=== PATIENT | female | born 1990 | race Caucasian/White ===

== ENCOUNTER → 2016-08-05 | Outpatient (CLI) | payer OTHER ==
--- NOTE | 2016-08-05 14:49 | REP ---
Bilateral lower extremity pain while running. FINDINGS: No acute fracture or destructive osseous lesion. Signed by Lei Sawyer DO 08/05/2016 05:01 P
[2016-08-05 17:16] LABS: BASO % 0.5 % (0.0-1.0); EOS % 0.4 % (0.0-3.0); FOLATE 19.3 NG/ML; LARGE UNSTAINED CELL # 0.1 K/mm3 (0.0-0.4); LARGE UNSTAINED CELL % 1.2 % (0.0-4.0); LYMPH # 1.3 K/mm3 (1.5-6.5); LYMPH % 23.1 % (24.0-44.0); MEAN CORPUSCULAR HEMOGLOBIN 29.7 pg (27.0-33.0); MEAN CORPUSCULAR HGB CONC 33.9 g/dl (32.0-36.5); MEAN CORPUSCULAR VOLUME 87.7 fl (80.0-96.0); MONO # 0.3 K/mm3 (0.0-0.8); MONO % 4.9 % (0.0-5.0); NEUTROPHILS % 69.9 % (36.0-66.0); PLATELET COUNT, AUTOMATED 226 k/mm3 (150-450); RED CELL DISTRIBUTION WIDTH 12.6 % (11.5-14.5); VITAMIN B12 LEVEL 940 PG/ML; WHITE BLOOD COUNT 5.8 K/mm3 (4.0-10.0)
[2016-08-05 17:21] LABS: ALBUMIN/GLOBULIN RATIO 1.11 (1.00-1.93); ALKALINE PHOSPHATASE 62 U/L (45-117); ALT/SGPT 43 U/L (12-78); ANION GAP 6 MEQ/L (8-16); AST/SGOT 37 U/L (15-37); BILIRUBIN,TOTAL 0.5 MG/DL (0.2-1.0); BLOOD UREA NITROGEN 44 MG/DL (7-18); CARBON DIOXIDE LEVEL 30 MEQ/L (21-32); CHLORIDE LEVEL 105 MEQ/L (98-107); CREATININE FOR GFR 1.12 MG/DL (0.55-1.02); GLOMERULAR FILTRATION RATE > 60.0 (>60); GLUCOSE, FASTING 85 MG/DL (70-105); POTASSIUM SERUM 4.2 MEQ/L (3.5-5.1); SODIUM LEVEL 141 MEQ/L (136-145); TOTAL PROTEIN 7.6 GM/DL (6.4-8.2)
== END ==
LOC: M SMT 12:08
PROVIDERS: ATTEND Family Medicine
DX: M79.605 Pain in left leg (principal); M79.604 Pain in right leg; R53.83 Other fatigue

== ENCOUNTER → 2016-10-18 | Outpatient (CLI) | payer OTHER ==
[~2016-10-18] VITALS: Ht 160 cm; Wt 70.3 kg
[~2016-10-18] MED LIST: GLYCOPYRROLATE INJ 0.2 MG/ML 2 ML VIAL As Ordered ONE; LR 1,000 ML IV SCH; PROPOFOL 200 MG/20 ML VIAL As Ordered ONE
--- NOTE | 2016-10-18 13:42 | ROOR ---
Patient Name: Zee Grant Procedure Date: 10/18/2016 12:52 PM Date of : 1990 Age: 26 Room: [facility] Gender: Female Note Status: Finalized Procedure: Colonoscopy Indications: Family history of familial adenomatous polyposis in a first-degree relative, Last colonoscopy: 2009 Providers: Conrad Ballard MD Referring MD: Natali HENDERSON DO Requesting Provider: Medicines: Monitored Anesthesia Care Complications: No immediate complications. Procedure: Pre-Anesthesia Assessment: - Prior to the procedure, a History and Physical was performed, and patient medications and allergies were reviewed. The patient is competent. The risks and benefits of the procedure and the sedation options and risks were discussed with the patient. All questions were answered and informed consent was obtained. Patient identification and proposed procedure were verified by the physician, the nurse and the camp dishwasher in the procedure room. Mental Status Examination: alert and oriented. Airway Examination: normal oropharyngeal airway and neck mobility. CV Examination: regular rate and rhythm. Prophylactic Antibiotics: The patient does not require prophylactic antibiotics. Prior Anticoagulants: The patient has taken no previous anticoagulant or antiplatelet agents. ASA Grade Assessment: I - A normal, healthy patient. After reviewing the risks and benefits, the patient was deemed in satisfactory condition to undergo the procedure. The anesthesia plan was to use monitored anesthesia care (MAC). Immediately prior to administration of medications, the patient was re-assessed for adequacy to receive sedatives. The heart rate, respiratory rate, oxygen saturations, blood pressure, adequacy of pulmonary ventilation, and response to care were monitored throughout the procedure. The physical status of the patient was re-assessed after the procedure. The Colonoscope [id number] #[id number] was introduced through the anus and advanced to the cecum, identified by appendiceal orifice and ileocecal valve. The colonoscopy was performed without difficulty. The patient tolerated the procedure well. The quality of the bowel preparation was excellent. Findings: The perianal and digital rectal examinations were normal. The colon (entire examined portion) appeared normal. Impression: - The entire examined colon is normal. - No specimens collected. Recommendation: - Discharge patient to home. - Resume regular diet. Conrad Ballard MD 10/18/2016 1:41:48 PM Number of Addenda: 0 Note Initiated On: 10/18/2016 12:52 PM Estimated Blood Loss: Estimated blood loss: none.
[2016-10-18 14:14] VITALS: BP 129/67
== END | disposition home or self-care (01) ==
LOC: M OPP 11:43
PROVIDERS: ATTEND Surgery
DX: Z12.11 Encounter for screening for malignant neoplasm of colon (principal); D12.6 Benign neoplasm of colon, unspecified; Z83.71 Family history of colonic polyps; Z87.442 Personal history of urinary calculi; Z79.899 Other long term (current) drug therapy

== ENCOUNTER → 2016-11-15 | Outpatient (REF) | payer OTHER | LOC: M LAB REF 17:04 | PROVIDERS: ATTEND Physician Assistant Medical | DX: R30.0 Dysuria (principal) ==

== ENCOUNTER → 2016-12-23 | Outpatient (CLI) | payer OTHER ==
--- NOTE | 2016-12-23 13:06 | REP ---
LUMBOSACRAL SPINE: AP and lateral views of the lumbosacral spine are performed. There is no compression fracture or malalignment with normal lumbar lordosis. There is no evidence of spondylolysis or spondylolisthesis. Disc spaces are normal in thickness. Posterior elements are intact. Incidental note is made of multiple subcentimeter calcifications scattered throughout the region of the left kidney, with approximately three subcentimeter calcifications overlying the right renal shadow. I suspect these represent bilateral renal calculi. IMPRESSION: Negative lumbosacral spine. Suspect multiple bilateral subcentimeter renal calculi. Signed by Candido Jones MD 12/23/2016 02:24 P
== END ==
LOC: M SMT 11:44
PROVIDERS: ATTEND Physician Assistant Medical
DX: M54.5 Low back pain (principal)

== ENCOUNTER → 2017-02-17 | Outpatient (CLI) | payer OTHER ==
[2017-02-17 13:33] LABS: CALCIUM LEVEL 9.2 MG/DL (8.5-10.1)
== END ==
LOC: M SMT 11:01
PROVIDERS: ATTEND Physician Assistant Medical
DX: N20.0 Calculus of kidney (principal)

== ENCOUNTER → 2017-03-03 | Outpatient (CLI) | payer OTHER ==
--- NOTE | 2017-03-03 15:10 | REP ---
Radionuclide parathyroid scintigraphy with SPECT imaging: History: Kidney calculus. Parathyroid sestamibi scan. Primary hyperparathyroidism. Technique: 26.3 mCi technetium 99m sestamibi is injected and 15-minute delay and 3 hour delayed planar images of the head, neck and mediastinal region is acquired. In addition, a SPECT acquisition is performed. Scintigraphic findings: The 15-minute delayed images demonstrate expected salivary and thyroid gland uptake bilaterally. No abnormal mediastinal or head and neck uptake is seen. Delayed images demonstrate normal washout from the thyroid and salivary glands. There is no persistent uptake in the head, neck or mediastinal soft tissues to suggest a parathyroid adenoma. SPECT imaging is negative. Impression: Negative sestamibi parathyroid nuclear scintigraphy. Signed by Jose Barrera MD 03/03/2017 04:32 P
== END ==
LOC: M RAD 09:58
PROVIDERS: ATTEND Physician Assistant Medical
DX: N20.0 Calculus of kidney (principal); E21.0 Primary hyperparathyroidism
CPT/HCPCS: 78070; 78803; A9500

== ENCOUNTER → 2017-03-14 | Outpatient (CLI) | payer OTHER | LOC: M SMT 11:46 | PROVIDERS: ATTEND Physician Assistant Medical | DX: N20.0 Calculus of kidney (principal) ==

== ENCOUNTER → 2017-03-30 | Outpatient (REF) | payer OTHER | LOC: M LAB REF 13:10 | DX: R19.7 Diarrhea, unspecified (principal) ==

== ENCOUNTER → 2017-03-30 | Outpatient (CLI) | payer OTHER ==
[2017-03-30 13:35] LABS: MEAN CORPUSCULAR HEMOGLOBIN 28.8 pg (27.0-33.0); MEAN CORPUSCULAR HGB CONC 33.2 g/dl (32.0-36.5); MEAN CORPUSCULAR VOLUME 86.7 fl (80.0-96.0); PLATELET COUNT, AUTOMATED 210 10^3/uL (150-450); RED CELL DISTRIBUTION WIDTH 12.2 % (11.5-14.5); WHITE BLOOD COUNT 5.6 10^3/uL (4.0-10.0)
[2017-03-30 14:07] LABS: ALBUMIN 3.7 GM/DL (3.2-5.2); ALBUMIN/GLOBULIN RATIO 1.12 (1.00-1.93); ALKALINE PHOSPHATASE 50 U/L (45-117); ALT/SGPT 39 U/L (12-78); ANION GAP 5 MEQ/L (8-16); AST/SGOT 33 U/L (7-37); BILIRUBIN,TOTAL 0.3 MG/DL (0.2-1.0); BLOOD UREA NITROGEN 44 MG/DL (7-18); CALCIUM LEVEL 8.3 MG/DL (8.5-10.1); CARBON DIOXIDE LEVEL 30 MEQ/L (21-32); CHLORIDE LEVEL 107 MEQ/L (98-107); CREATININE FOR GFR 0.93 MG/DL (0.55-1.02); GLOMERULAR FILTRATION RATE > 60.0 (>60); GLUCOSE, FASTING 100 MG/DL (70-105); POTASSIUM SERUM 4.4 MEQ/L (3.5-5.1); SODIUM LEVEL 142 MEQ/L (136-145)
== END ==
LOC: M SMT 09:52
DX: N92.6 Irregular menstruation, unspecified (principal)

== ENCOUNTER → 2017-04-10 | Outpatient (CLI) | payer OTHER | LOC: M RAD 10:58 | DX: N92.6 Irregular menstruation, unspecified (principal) | CPT/HCPCS: 76856 ==

== ENCOUNTER → 2017-05-01 | Outpatient (REF) | payer OTHER ==
[2017-05-01 19:29] LABS: INFLUENZA A AMPLIFICATION NEGATIVE (NEGATIVE); INFLUENZA B AMPLIFICATION NEGATIVE (NEGATIVE)
== END ==
LOC: M LAB REF 17:11
DX: J02.9 Acute pharyngitis, unspecified (principal)

== ENCOUNTER → 2017-11-06 | Outpatient (REF) | payer OTHER | LOC: M LAB REF 17:04 | DX: R31.9 Hematuria, unspecified (principal) | CPT/HCPCS: 87086 ==

== ENCOUNTER → 2017-11-08 | Outpatient (REF) | payer OTHER ==
[2017-11-08 13:41] LABS: BASO % 0.4 % (0.0-1.0); EOS % 0.4 % (0.0-3.0); HEMATOCRIT 41.5 % (36.0-47.0); HEMOGLOBIN 13.7 g/dl (12.0-15.5); IMMATURE GRANULOCYTE % 0.4 % (0-3.0); LYMPH # 1.4 10^3/uL (1.5-6.5); LYMPH % 15.2 % (24.0-44.0); MEAN CORPUSCULAR HEMOGLOBIN 29.2 pg (27.0-33.0); MEAN CORPUSCULAR VOLUME 88.5 fl (80.0-96.0); MONO # 0.4 10^3/uL (0.0-0.8); MONO % 3.8 % (0.0-5.0); NEUTROPHILS # 7.3 10^3/uL (1.8-7.7); NEUTROPHILS % 79.8 % (36.0-66.0); PLATELET COUNT, AUTOMATED 222 10^3/uL (150-450); RED BLOOD COUNT 4.69 10^6/uL (4.00-5.40); RED CELL DISTRIBUTION WIDTH 13.9 % (11.5-14.5); WHITE BLOOD COUNT 9.1 10^3/uL (4.0-10.0)
[2017-11-08 14:03] LABS: ALBUMIN/GLOBULIN RATIO 1.08 (1.00-1.93); ALKALINE PHOSPHATASE 47 U/L (45-117); ALT/SGPT 51 U/L (12-78); ANION GAP 8 MEQ/L (8-16); AST/SGOT 42 U/L (7-37); BILIRUBIN,TOTAL 0.4 MG/DL (0.2-1.0); BLOOD UREA NITROGEN 44 MG/DL (7-18); CALCIUM LEVEL 9.1 MG/DL (8.5-10.1); CARBON DIOXIDE LEVEL 26 MEQ/L (21-32); CHLORIDE LEVEL 105 MEQ/L (98-107); CPK CREATINE PHOSPHOKINASE 387 U/L (26-192); CREATININE FOR GFR 1.26 MG/DL (0.55-1.30); GLOMERULAR FILTRATION RATE 54.6 (>60); GLUCOSE, FASTING 83 MG/DL (70-100); MAGNESIUM LEVEL 2.3 MG/DL (1.8-2.4); POTASSIUM SERUM 4.8 MEQ/L (3.5-5.1); SODIUM LEVEL 139 MEQ/L (136-145); TOTAL PROTEIN 7.7 GM/DL (6.4-8.2)
== END ==
LOC: M LABDRAW1 13:22
DX: R31.9 Hematuria, unspecified (principal)

== ENCOUNTER → 2017-11-14 | Outpatient (REF) | payer OTHER ==
[2017-11-14 14:31] LABS: APPEARANCE, URINE CLEAR (CLEAR); BACTERIA, URINE AUTO NEGATIVE (NEGATIVE); BILIRUBIN, URINE AUTO NEGATIVE (NEGATIVE); BLOOD, URINE BLOOD 3+ (NEGATIVE); COLOR, URINE STRAW (YELLOW); GLUCOSE, URINE (UA) AUTO NEGATIVE (NEGATIVE); KETONE, URINE AUTO NEGATIVE (NEGATIVE); LEUKOCYTE ESTERASE, URINE AUTO NEGATIVE (NEGATIVE); NITRITE, URINE AUTO NEGATIVE (NEGATIVE); PROTEIN, URINE AUTO NEGATIVE (NEGATIVE); RBC, URINE AUTO 129 /HPF (0-3); SPECIFIC GRAVITY URINE AUTO 1.012 (1.002-1.035); SQUAMOUS EPITHELIAL CELL UR AU 0 /HPF (0-6); UROBILINOGEN, URINE AUTO 0.2 mg/dL (0.0-2.0); WBC, URINE AUTO 1 /HPF (0-3)
== END ==
LOC: M SMT 13:01
DX: R31.9 Hematuria, unspecified (principal)

== ENCOUNTER → 2017-12-22 | Outpatient (CLI) | payer OTHER ==
[2017-12-22 17:11] LABS: BASO # 0.1 10^3/uL (0.0-0.2); BASO % 0.6 % (0.0-1.0); EOS % 0.2 % (0.0-3.0); HEMATOCRIT 37.8 % (36.0-47.0); HEMOGLOBIN 13.1 g/dl (12.0-15.5); IMMATURE GRANULOCYTE % 0.8 % (0-3.0); LYMPH # 1.7 10^3/uL (1.5-6.5); MEAN CORPUSCULAR HEMOGLOBIN 29.6 pg (27.0-33.0); MEAN CORPUSCULAR HGB CONC 34.7 g/dl (32.0-36.5); MEAN CORPUSCULAR VOLUME 85.5 fl (80.0-96.0); MONO # 0.4 10^3/uL (0.0-0.8); MONO % 5.2 % (0.0-5.0); NEUTROPHILS # 6.2 10^3/uL (1.8-7.7); NEUTROPHILS % 73.2 % (36.0-66.0); PLATELET COUNT, AUTOMATED 200 10^3/uL (150-450); RED BLOOD COUNT 4.42 10^6/uL (4.00-5.40); RED CELL DISTRIBUTION WIDTH 12.7 % (11.5-14.5); WHITE BLOOD COUNT 8.5 10^3/uL (4.0-10.0)
[2017-12-22 20:25] LABS: CHLAMYDIA DNA AMPLIFICATION NEGATIVE (NEGATIVE); GC DNA AMPLIFICATION NEGATIVE (NEGATIVE)
[2017-12-25 12:52] LABS: HEPATITIS C VIRUS ABY INDEX 0.1 INDEX (<0.8)
[2017-12-25 12:52] LABS: HBsAg Prenatal NEGATIVE (NEGATIVE); HIV 1&2 SCREEN CENTAUR NEGATIVE (NEGATIVE); RUBELLA IgG QUALITATIVE IMMUNE (IMMUNE)
== END ==
LOC: M SMT 14:30
DX: Z34.81 Encounter for supervision of other normal pregnancy, first trimester (principal); Z36.89 Encounter for other specified antenatal screening; Z3A.09 9 weeks gestation of pregnancy
CPT/HCPCS: 86762

== ENCOUNTER → 2018-01-23 | Outpatient (CLI) | payer OTHER ==
[2018-01-23 18:02] LABS: BASO % 0.2 % (0.0-1.0); EOS % 0.1 % (0.0-3.0); HEMATOCRIT 38.1 % (36.0-47.0); HEMOGLOBIN 12.9 g/dl (12.0-15.5); IMMATURE GRANULOCYTE % 0.2 % (0-3.0); LYMPH % 12.6 % (24.0-44.0); MEAN CORPUSCULAR HEMOGLOBIN 29.4 pg (27.0-33.0); MEAN CORPUSCULAR HGB CONC 33.9 g/dl (32.0-36.5); MEAN CORPUSCULAR VOLUME 86.8 fl (80.0-96.0); MONO # 0.4 10^3/uL (0.0-0.8); MONO % 4.7 % (0.0-5.0); NEUTROPHILS # 6.6 10^3/uL (1.8-7.7); NEUTROPHILS % 82.2 % (36.0-66.0); PLATELET COUNT, AUTOMATED 183 10^3/uL (150-450); RED BLOOD COUNT 4.39 10^6/uL (4.00-5.40); RED CELL DISTRIBUTION WIDTH 12.9 % (11.5-14.5); WHITE BLOOD COUNT 8.1 10^3/uL (4.0-10.0)
[2018-01-23 22:15] LABS: ANION GAP 8 MEQ/L (8-16); BLOOD UREA NITROGEN 35 MG/DL (7-18); CALCIUM LEVEL 8.4 MG/DL (8.5-10.1); CARBON DIOXIDE LEVEL 26 MEQ/L (21-32); CHLORIDE LEVEL 102 MEQ/L (98-107); CREATININE FOR GFR 0.85 MG/DL (0.55-1.30); GLOMERULAR FILTRATION RATE > 60.0 (>60); GLUCOSE, FASTING 71 MG/DL (70-100); POTASSIUM SERUM 3.9 MEQ/L (3.5-5.1); SODIUM LEVEL 136 MEQ/L (136-145)
== END ==
LOC: M SMT 15:47
DX: R31.9 Hematuria, unspecified (principal)
CPT/HCPCS: 80048

== ENCOUNTER → 2018-01-30 | Outpatient (CLI) | payer OTHER | LOC: M SMT 15:11 | DX: Z36.89 Encounter for other specified antenatal screening (principal) | CPT/HCPCS: 36415 ==

== ENCOUNTER → 2018-03-02 | Outpatient (CLI) | payer OTHER | LOC: M RAD 15:23 | DX: Z34.82 Encounter for supervision of other normal pregnancy, second trimester (principal); Z3A.18 18 weeks gestation of pregnancy | CPT/HCPCS: 76811 ==

== ENCOUNTER → 2018-03-20 | Outpatient (CLI) | payer OTHER ==
--- NOTE | 2018-03-21 07:16 | REP ---
Clinical: Anatomical evaluation. Comparison: 03/02/2018 . Findings: Examination demonstrates a single live intrauterine in breech presentation. motion is identified by technologist. Placenta is noted anterior and grade grade 1 without evidence for placenta previa or abruption. Amniotic fluid volume is normal. Cervix measures 3.7 cm in length and appears closed. No evidence for nuchal cord. Gestational age by LMP 21 weeks 5 days with JACQUELIN 07/26/2018 . Gestational age by current measurements 21 weeks 1 day with JACQUELIN 07/30/2018 . FHR equals 141 beats per minute. Estimated weight 402 grams ( 28th percentile). Anatomical assessment demonstrates normal structures including cranium, choroid plexus, cavum, cerebellum/posterior fossa, facial features, lungs, four-chamber heart/ventricular outflow tracts, diaphragm, stomach, cord insertion/three-vessel cord, kidneys/bladder, spine, and extremities. Impression: Single live intrauterine in breech presentation demonstrating appropriate interval growth. Anatomical assessment is complete and normal. No gross abnormalities are identified. Electronically Signed by Steven Fabian MD 03/21/2018 07:08 A
== END ==
LOC: M RAD 17:10
PROVIDERS: ATTEND Advanced Practice Midwife
DX: O99.512 Diseases of the respiratory system complicating pregnancy, second trimester (principal); O32.1XX0 Maternal care for breech presentation, not applicable or unspecified; Z3A.21 21 weeks gestation of pregnancy

== ENCOUNTER → 2018-05-03 | Outpatient (CLI) | payer OTHER ==
[2018-05-03 17:31] LABS: HEMATOCRIT 38.3 % (36.0-47.0); HEMOGLOBIN 13.1 g/dl (12.0-15.5); MEAN CORPUSCULAR HEMOGLOBIN 30.3 pg (27.0-33.0); MEAN CORPUSCULAR HGB CONC 34.2 g/dl (32.0-36.5); MEAN CORPUSCULAR VOLUME 88.7 fl (80.0-96.0); PLATELET COUNT, AUTOMATED 186 10^3/uL (150-450); RED BLOOD COUNT 4.32 10^6/uL (4.00-5.40); WHITE BLOOD COUNT 9.3 10^3/uL (4.0-10.0)
== END ==
LOC: M SMT 12:37
PROVIDERS: ATTEND Advanced Practice Midwife
DX: O99.89 Other specified diseases and conditions complicating pregnancy, childbirth and the puerperium (principal)

== ENCOUNTER → 2018-05-25 | Outpatient (CLI) | payer OTHER ==
--- NOTE | 2018-05-25 18:17 | REP ---
Obstetric ultrasound for biophysical profile: There is a single intrauterine gestation in a transverse lie with the head to the maternal left. Subjectively the amniotic fluid volume is normal. The amniotic fluid index is 17.3 (8.8 - 23.8). heart rate is 120 beats per minute. Cervix is 4.2 cm length. Gestational age by the first ultrasound is 30 weeks 5 days/JACQUELIN 07/29/2018. biophysical profile: Breathing - 2.0 One - 2.0 Tone - 2.0 A F V - 2.0 Total - 8/8. Umbilical cord Doppler S/D ratio is 3.8( 2.5 - 3.5). Electronically Signed by Candido Morrow MD 05/25/2018 06:08 P
== END ==
LOC: M RAD 16:23
PROVIDERS: ATTEND Advanced Practice Midwife
DX: O26.843 Uterine size-date discrepancy, third trimester (principal)

== ENCOUNTER → 2018-06-01 | Outpatient (CLI) | payer OTHER ==
--- NOTE | 2018-06-01 15:01 | REP ---
Obstetric sonography: History: at 31 weeks. Follow up growth study. Biophysical profile. Size date discrepancy. Sonographic findings: Scanning through the gravid uterus demonstrates a viable single intrauterine gestation in a cephalic lie. motion is observed and heart rate is recorded at 129 beats per minute. An anterior grade 2 placenta is seen without evidence of previa or abruption. Amniotic fluid is subjectively normal. Closed cervical length viewed transabdominally is 4.6 cm. No extrauterine abnormalities observed. There has been slightly less than expected interval growth. Umbilical cord is seen draping over the neck. Small bilateral hydroceles are noted in the scrotum. Biometry chart: BPD 7.8 cm = 31 weeks 2 days HC 29.6 cm = 32 weeks 5 days AC 24.9 cm = 29 weeks 1 day FL 5.7 cm = 29 weeks 6 days HL 5.2 cm = 30 weeks 2 days HC/AC ratio 1.19 (0.95-1.14. Cephalic index 0.72. Estimated weight 1470 grams, 3 pounds 3 ounces, less than 3rd percentile for 32 weeks 1 day. KHLOE normal 16.3 cm. Biophysical profile score 8 out of a possible 8. S/D ratio in the umbilical cord artery by Doppler normal 3.27. Impression: Viable single intrauterine gestation at 30 weeks 5 days by today's composite sonographic criteria. Expected gestational age estimate based on prior sonography 31 weeks 5 days. JACQUELIN by prior sonography July 29, 2018. Estimated weight less than 3rd percentile for 32 weeks 1 day. Electronically Signed by Jose Barrera MD 06/01/2018 03:53 P
== END ==
LOC: M RAD 12:49
PROVIDERS: ATTEND Advanced Practice Midwife
DX: O26.843 Uterine size-date discrepancy, third trimester (principal); Z3A.30 30 weeks gestation of pregnancy

== ENCOUNTER → 2018-06-07 | Outpatient (CLI) | payer OTHER ==
--- NOTE | 2018-06-08 04:58 | REP ---
Clinical: well-being. Comparison: 06/01/2018 . Findings: Examination demonstrates a single live intrauterine in breech presentation. motion is identified by technologist. Placenta is noted anterior and grade grade II without evidence for placenta previa or abruption. Amniotic fluid volume is normal. Cervix measures 3.6 cm in length and appears closed. No evidence for nuchal cord. Gestational age by LMP 33 weeks 0 days with JACQUELIN 07/26/2018 . Gestational age by first US 32 weeks 4 days with JACQUELIN 07/29/2018 . FHR equals 141 beats per minute. Biophysical profile score: 8/ Amniotic fluid index: 12.9 cm (8.3 - 24.5) Umbilical cord SD ratio: 2.15 Impression: At single live intrauterine in breech presentation. Biophysical profile score: 8/8 Electronically Signed by Steven Fabian MD 06/08/2018 04:49 A
== END ==
LOC: M RAD 17:59
PROVIDERS: ATTEND Obstetrics & Gynecology
DX: O36.5930 Maternal care for other known or suspected poor fetal growth, third trimester, not applicable or unspecified (principal); O32.1XX0 Maternal care for breech presentation, not applicable or unspecified; Z3A.33 33 weeks gestation of pregnancy

== ENCOUNTER → 2018-06-15 | Outpatient (CLI) | payer OTHER ==
--- NOTE | 2018-06-15 09:20 | REP ---
Biophysical profile OB ultrasound: 06/15/2018. Comparison 06/07/2018, 06/01/2018. Clinical history: Third trimester, growth. There is a single intrauterine gestation in vertex position. There is an anterior grade 1 placenta without previa or abruption. Amniotic fluid volume is visually normal. The index is 12.9 with a normal range 8.1 - 24.8 and the largest fluid pocket 4.3 cm. Cervix is 3.6 cm long and closed. Mid cord umbilical artery Doppler shows an S/D ratio 2.4 with normal forward diastolic flow and Doppler resistive index of 0.58. biometry:BPD 8.4 cm 33 week 6 daysHC 31.1 cm 34 weeks 5 daysAC 28.9 cm 32 week 6 daysFL 6 cm 31 weeks 2 daysHL 5.8 cm 33 weeks 4 days CER 4.4 cm 34 weeks 3 days. This gives average ultrasound age 33 weeks 2 days and EDC 08/01/2018. By initial ultrasound, she is 33 weeks 5 days, EDC 07/29/2018. Estimated weight 2027 grams or 4 pounds 7 ounces is 21st percentile based on LMP (34 weeks 1 day. Measurement ratios are in the normal range. The femur length is 7th percentile. All others are in the range of 32 percentile to 60 percentile. anatomy visible on this study shows a heart rate 133 and regular. Cranial vault, choroid plexus, thalami, cavum septum pellucidum, cerebellum and cisterna magna, face and profile views, lungs, diaphragm, left-sided stomach bubble, cord insertion, three-vessel cord and kidneys unremarkable. The bladder was intact. There are small hydroceles again seen. No evidence of a nuchal cord. biophysical profile: Breathing 2. Tone 2. Movement 2. AFV 2. IMPRESSION: 1. Single intrauterine gestation in vertex position with closed 3.6 cm long cervix, anterior grade 1 placenta without previa abruption and KHLOE 12.9. Visually normal fluid. 2. Heart rate 133 and regular. Visualized anatomic structures unremarkable. However there are small hydroceles noted in the scrotum. 3. Size and dates show normal interval growth, 33 weeks 2 days by today's ultrasound, 33 weeks 5 days by initial ultrasound, 34 weeks 1 day by LMP. Estimated weight 21st percentile for LMP. On the previous exam, it was calculated at less than 3% on 03/20/2018. The estimated weight was 28th percentile. 4. BPP score 8/8. Electronically Signed by Cornelio Holland MD 06/15/2018 06:29 P
== END ==
LOC: M RAD 07:35
PROVIDERS: ATTEND Advanced Practice Midwife
DX: O36.5930 Maternal care for other known or suspected poor fetal growth, third trimester, not applicable or unspecified (principal); Z3A.33 33 weeks gestation of pregnancy

== ENCOUNTER → 2018-06-21 | Outpatient (CLI) | payer OTHER ==
--- NOTE | 2018-06-21 15:48 | REP ---
Limited obstetric sonography: History: Poor growth. Findings: Obstetric sonography demonstrates a single intrauterine gestation in a cephalic lie. Placenta is anterior grade 1 without evidence of previa. motion and cardiac motion is observed. heart rate is recorded at 150 beats per minute. Closed cervical length is 3.3 cm, measured transabdominally. SD ratio umbilical cord artery by Doppler is normal at 2.31. Biophysical profile score is eight out of a possible eight. KHLOE is normal 15.4 cm. Electronically Signed by Jose Barrera MD 06/21/2018 03:39 P
== END ==
LOC: M RAD 06:59
PROVIDERS: ATTEND Advanced Practice Midwife
DX: O36.5930 Maternal care for other known or suspected poor fetal growth, third trimester, not applicable or unspecified (principal)

== ENCOUNTER → 2018-06-28 | Outpatient (CLI) | payer OTHER ==
--- NOTE | 2018-06-28 10:13 | REP ---
OBSTETRIC SONOGRAPHY: HISTORY: Supervision of , followup for weekly biophysical profile and umbilical cord Doppler. growth study. Third trimester. FINDINGS: Scanning through the gravid uterus demonstrates a viable single gestation in a breech lie. motion is observed, and heart rate is recorded at 142 beats per minute. An anterior placenta is seen, grade 1 without evidence of previa or abruption. Amniotic fluid is subjectively normal. Closed cervical length measured transabdominally is 2.6 cm. No extrauterine abnormalities observed. There has been appropriate interval growth. Exam quality is inhibited some degree by advanced gestational age and crowding. No abnormalities observed. The following anatomic structures are identified today and felt to be unremarkable: cranium, choroid plexus, cavum, cerebellum and posterior fossa, diaphragm, left-sided stomach, three-vessel cord, kidneys and bladder, spine. BIOMETRY CHART: BPD 8.8 cm = 35 weeks 3 days Head circumference 32.5 cm = 36 weeks 6 days Abdominal circumference 31.1 cm = 35 weeks 1 day Femur length 6.5 cm = 33 weeks 3 days Humeral length 5.6 cm = 32 weeks 5 days HC/AC ratio normal 1.05 Cephalic index normal 0.75 Estimated weight 2536 grams, 5 pounds 9 ounces, 31st percentile for 36 weeks 0 days. KHLOE normal 11.1 cm. Biophysical profile score 8 out of a possible 8. S/D ratio normal 2.72. IMPRESSION: Viable single intrauterine gestation at 34 weeks 5 days by today's composite sonographic criteria. Expected gestational age estimate based on prior sonography is 35 weeks 4 days. JACQUELIN by prior sonography July 29, 2018. Electronically Signed by Jose Barrera MD 06/28/2018 12:07 P
== END ==
LOC: M RAD 07:47
PROVIDERS: ATTEND Obstetrics & Gynecology
DX: O36.5930 Maternal care for other known or suspected poor fetal growth, third trimester, not applicable or unspecified (principal); Z3A.34 34 weeks gestation of pregnancy

== ENCOUNTER → 2018-06-29 | Outpatient (CLI) | payer OTHER | LOC: M SMT 10:03 | PROVIDERS: ATTEND Advanced Practice Midwife | DX: Z36.85 Encounter for antenatal screening for Streptococcus B (principal); O36.5930 Maternal care for other known or suspected poor fetal growth, third trimester, not applicable or unspecified; Z3A.00 Weeks of gestation of pregnancy not specified ==

== ENCOUNTER → 2018-07-16 | Outpatient (CLI) | payer OTHER ==
--- NOTE | 2018-07-16 09:39 | REP ---
Third trimester obstetric ultrasound for size, date discrepancy: There is a single intrauterine gestation in a vertex presentation. There is movement. cardiac activity is identified. The heart rate is of 142 beats per minute. The placenta is anterior. There is no previa or abruptio. The placenta is grade zero maturity. The amniotic fluid volume subjectively is normal. The amniotic fluid index is 13.4 (deepest pocket). The cervix measures 2.8 cm length. Gestational age by today's ultrasound is 36 weeks 5 days/JACQUELIN 08/08/2018. Gestational age by the first ultrasound is 38 weeks 1 day/JACQUELIN 07/29/2018. Gestational age by LMP is 38 weeks 4 days/JACQUELIN 07/26/2018. weight is 3027 grams/6 pounds, 10 ounces. This is the 32nd percentile for 38 weeks 4 days. Umbilical artery Doppler assessment: S/D ratio 2.09 (2.30-3.30) Resistive Index 0.52 (0.59-0.75 Diastolic Velocity 24.3 (>10 cm/sec) On prior studies, the facial profile, four-chamber view of the heart, cardiac right and left ventricular outflow tracts, and upper lower extremities were not optimally demonstrated. These studies are not optimally demonstrated as well today. Evaluation of the anatomy is technically difficult. The third trimester. Electronically Signed by Candido Morrow MD 07/16/2018 08:06 A
== END ==
LOC: M RAD 06:38
PROVIDERS: ATTEND Advanced Practice Midwife
DX: O26.843 Uterine size-date discrepancy, third trimester (principal)

== ENCOUNTER 2018-08-02 21:57 | Inpatient (IN) | payer OTHER ==
[~2018-08-02] VITALS: Ht 160 cm; Wt 80.6 kg
[2018-08-02 22:19] VITALS: BP 128/74
[2018-08-02 23:01] LABS: HEMATOCRIT 39.2 % (36.0-47.0); HEMOGLOBIN 13.5 g/dl (12.0-15.5); MEAN CORPUSCULAR HEMOGLOBIN 30.1 pg (27.0-33.0); MEAN CORPUSCULAR HGB CONC 34.4 g/dl (32.0-36.5); MEAN CORPUSCULAR VOLUME 87.3 fl (80.0-96.0); PLATELET COUNT, AUTOMATED 190 10^3/uL (150-450); RED BLOOD COUNT 4.49 10^6/uL (4.00-5.40); WHITE BLOOD COUNT 8.3 10^3/uL (4.0-10.0)
[2018-08-02] MEDS ORDERED: PENICILLIN G POTASSIUM IV 5 MU in D5W MINI-BAG PLUS 100 ML IV STA (23:25)
[2018-08-03] VITALS (10 sets, daily range): BP systolic 121–149; BP diastolic 56–85
[2018-08-03] MEDS: miSOPROStol 50 MCG 1/2 TAB (S0191) PO SCH ×4 (00:10→12:53)
[2018-08-03] MEDS ORDERED: PENICILLIN G POTASSIUM IV 2.5 MU in APPROPRIATE DILUENT 1 EA IV SCH (03:30)
--- NOTE | 2018-08-03 04:06 | HPE ---
DATE OF ADMISSION: 08/02/2018 REASON FOR ADMISSION: Induction of labor. HISTORY OF PRESENT ILLNESS: This patient is a 27-year-old 1, who presents at 21 weeks, zero days by estimated gestational age, by her last menstrual period, confirmed by first trimester ultrasound for induction of labor. Her course has been relatively uncomplicated. Earlier in her , there is concerns for intrauterine growth restriction. She was followed with serial growth ultrasounds, as well as biophysical profile with resolution of the intrauterine growth restriction. Her last growth ultrasound on 16 of July, had an EFW of 32%. Her care was initiated first trimester and appropriate throughout. PAST MEDICAL HISTORY: None. PAST SURGICAL HISTORY: PAST OBSTETRICAL HISTORY: She is 1, para 0. MEDICATIONS: Includes vitamins. ALLERGIES: She has no known drug allergies. SOCIAL HISTORY: She denies any alcohol, tobacco or drug use during the . PHYSICAL EXAMINATION: Her vital signs are stable. She is afebrile. She has category one heart tracing. General appearance: Well appearing, in no acute distress. Lungs are clear to auscultation bilaterally. Cardiovascular: Heart regular rate and rhythm. The abdomen is gravid, nontender. Cervical exam: She is 1 cm dilated, 25% effaced, -3 station. LABS: Her blood type is A+, antibody screen is negative. Rubella is immune. RPR nonreactive. Chlamydia, gonorrhea screens are negative. Hepatitis surface antigen negative. HIV is negative. Hepatitis C is nonreactive. She had Group B streptococcus (GBS) positive. ASSESSMENT: 1. This patient is a 27-year-old 1 at 41 weeks, zero days estimated gestational age by last menstrual period, confirmed by first trimester ultrasound, here for induction of labor for postdates. 2. Reassure status. 3. Group B streptococcus (GBS) positive, admitted to labor and delivery. Complete blood count (CBC), RPR, type and screen. 4. The patient has been thoroughly counseled in regards to induction of labor. I discussed medications, as well as procedures performed in labor and delivery. She has also been verbally considered for emergency surgery, blood products, anesthesia and desires to proceed with admission. 5. Will initiate her induction with 50 mcg of oral misoprostol.
--- NOTE | 2018-08-03 07:56 | IPNPDOC ---
Text Note Date of Service The patient was seen on 08/03/18. NOTE Remains comfortable Irregular mild UC FH 125, Cat I SVE FT/25/-2, posterior, soft Continue misoprostol. Consider Cooks this afternoon Dr Leung aware of pt status A-FIB/CHADSVASC A-FIB History Current/History of A-Fib/PAF?: No VS,Fishbone, I+O VS, Fishbone, I+O Laboratory Tests 08/02/18 22:40 Red Blood Count 4.49, Mean Corpuscular Volume 87.3, Mean Corpuscular Hemoglobin 30.1, Mean Corpuscular Hemoglobin Concent 34.4, Red Cell Distribution Width 12.7 Vital Signs Date Time Temp Pulse Resp B/P (MAP) Pulse Ox O2 Delivery O2 Flow Rate FiO2 08/03/18 07:26 97.8 45 125/56 (79) Lara Arechiga CNM August 03, 2018 07:56
--- NOTE | 2018-08-03 17:14 | IPNPDOC ---
Text Note Date of Service The patient was seen on 08/03/18. NOTE Has had 4 doses misoprostol 50mcg Cat I tracing, irregular UC SVE difficult, maternal guarding, 1cm/30%/-3 Cooks catheter placed, inflated with 60cc/40cc sterile saline Pt tolerated well Will initiate pitocin following dinner. A-FIB/CHADSVASC A-FIB History Current/History of A-Fib/PAF?: No VS,Fishbone, I+O VS, Fishbone, I+O Laboratory Tests 08/02/18 22:40 Red Blood Count 4.49, Mean Corpuscular Volume 87.3, Mean Corpuscular Hemoglobin 30.1, Mean Corpuscular Hemoglobin Concent 34.4, Red Cell Distribution Width 12.7 Vital Signs Date Time Temp Pulse Resp B/P (MAP) Pulse Ox O2 Delivery O2 Flow Rate FiO2 08/03/18 14:57 98.1 16 08/03/18 07:26 45 125/56 (79) Lara Arechiga CNM August 03, 2018 17:14
[2018-08-03] MEDS ORDERED: OXYTOCIN DRIP 30 UNITS in APPROPRIATE DILUENT 1 EA IV SCH (17:15)
[2018-08-03] MEDS: LR 1,000 ML IV SCH (19:35)
[2018-08-03] MEDS ORDERED: PENICILLIN G POTASSIUM 5 MU VIAL As Ordered ONE (19:45)
[2018-08-03] MEDS ORDERED: PENICILLIN G POTASSIUM IV 5 MU in D5W MINI-BAG PLUS 100 ML IV STA (19:46)
[2018-08-03] MEDS ORDERED: BUTORPHANOL 2 MG/ML INJ (J0595) IV ONE (20:45)
[2018-08-03] MEDS ORDERED: PROMETHAZINE INJ 25 MG/ML VIAL (J2550) IV ONE (20:45)
[2018-08-04] VITALS (52 sets, daily range): BP systolic 91–143; BP diastolic 50–103
[2018-08-04] MEDS: PENICILLIN G POTASSIUM IV 2.5 MU in APPROPRIATE DILUENT 1 EA IV SCH ×5 (00:05→17:17)
[2018-08-04] MEDS ORDERED: FENTANYL 2MCG/ML ROPIVACAINE 0.2% IN 0.9% NACL 100ML IVBAG As Ordered ONE (00:18)
[2018-08-04] MEDS ORDERED: diphenhydrAMINE INJ 50MG/ML VIAL (J1200) IV PRN ×2 (01:00→19:10)
[2018-08-04] MEDS ORDERED: ONDANSETRON 4MG/2ML VIAL (J2405) IV PRN ×4 (01:00→20:00)
[2018-08-04] MEDS ORDERED: NALOXONE INJ 0.4 MG/1 ML VIAL (J2310) IV PRN ×3 (01:00→19:10)
[2018-08-04] MEDS ORDERED: ePHEDrine SULFATE 25 MG/5 ML(5MG/ML) SYRINGE IV PRN (01:00)
[2018-08-04] MEDS ORDERED: LACTATED RINGER'S 1000 ML IV PRN (01:00)
[2018-08-04] MEDS: FENTANYL/ROPIVACAINE/NACL BAG 100 ML EPIDURAL SCH ×2 (01:00→10:15)
[2018-08-04] MEDS ORDERED: EPIDURAL COMMENT XX SCH (01:00)
[2018-08-04] MEDS ORDERED: REFRIGERATOR IV KEYS XX PRN (01:00)
[2018-08-04] MEDS ORDERED: EPIDURAL/PCA KEYS XX PRN (01:00)
--- NOTE | 2018-08-04 01:23 | IPNPDOC ---
Text Note Date of Service The patient was seen on 08/04/18. NOTE Comfortable with epidural Cat I tracing, UC 2-4 minutes apart x 60 seconds, Pitocin @ 4mu Cooks catheter through cervix SVE 4-/-2, moderate bloody show Enc rest. Anticipate NSVB A-FIB/CHADSVASC A-FIB History Current/History of A-Fib/PAF?: No VS,Fishbone, I+O VS, Fishbone, I+O Vital Signs Date Time Temp Pulse Resp B/P (MAP) Pulse Ox O2 Delivery O2 Flow Rate FiO2 08/03/18 14:57 98.1 16 08/03/18 07:26 45 125/56 (79) Lara Arechiga CNM August 04, 2018 01:23
--- NOTE | 2018-08-04 07:03 | IPNPDOC ---
Text Note Date of Service The patient was seen on 08/04/18. NOTE Has been comfortable with epidural Pitocin @ 8mu UC 2-4 minutes x 45-60 seconds FH 125, early decels, Cat I SVE /-1, AROM clear fluid A-FIB/CHADSVASC A-FIB History Current/History of A-Fib/PAF?: No VS,Fishbone, I+O VS, Fishbone, I+O Vital Signs Date Time Temp Pulse Resp B/P (MAP) Pulse Ox O2 Delivery O2 Flow Rate FiO2 08/04/18 06:07 98.6 42 18 113/56 (75) I&O- Last 24 Hours up to 6 AM 08/04/18 06:00 Intake Total 990 ml Output Total 1500 ml Balance -510 ml Lara Arechiga CNM August 04, 2018 07:03
[2018-08-04] MEDS: LR 1,000 ML IV SCH ×3 (08:50→19:24)
[2018-08-04] MEDS ORDERED: MORPHINE PRES-FREE INJ 10 MG/10 ML VIAL (J2274) As Ordered ONE (17:28)
[2018-08-04] MEDS ORDERED: OXYTOCIN INJ 10 UNITS/ML VIAL (J2590) As Ordered ONE (17:28)
[2018-08-04] MEDS ORDERED: LIDOCAINE 2% W/EPIN INJ 20ML **PRES FREE As Ordered ONE (17:29)
[2018-08-04] MEDS ORDERED: BICITRA 30ML SOLN UDC PO ONE (17:45)
[2018-08-04] MEDS ORDERED: ONDANSETRON 4MG/2ML VIAL (J2405) As Ordered ONE (18:52)
[2018-08-04] MEDS ORDERED: KETOROLAC 60 MG/2 ML VIAL (J1885) As Ordered ONE (18:56)
[2018-08-04] MEDS ORDERED: MEPERIDINE 50 MG/ML 1ML VIAL (J2175) As Ordered ONE (19:04)
[2018-08-04] MEDS ORDERED: METOCLOPRAMIDE INJ 10MG/2ML VIAL (J2765) IV PRN ×2 (19:10→20:00)
[2018-08-04] MEDS ORDERED: NALBUPHINE HCL 10 MG/ML AMP (J2300) IV PRN (19:10)
[2018-08-04] MEDS ORDERED: OXYTOCIN DRIP 30 UNITS in APPROPRIATE DILUENT 1 EA IV SCH (19:24)
[2018-08-04] MEDS ORDERED: MEASLES,MUMPS,RUBELLA VACCINE INJ (MMR-II) (90707) SC SCH (19:30)
[2018-08-04] MEDS ORDERED: DOCUSATE SODIUM 100 MG CAP PO PRN (19:30)
[2018-08-04] MEDS ORDERED: RHOGAM 300 MCG (1500 IU) INJ (J2790) IM SCH (19:30)
[2018-08-04] MEDS ORDERED: MEPERIDINE INJ 25 MG/ML VIAL (J2175) IV PRN (20:00)
[2018-08-04] MEDS ORDERED: fentaNYL 100 MCG/2 ML INJECTION (J3010) IV PRN (20:00)
[2018-08-04] MEDS: PERCOCET 5MG/325MG TAB PO PRN (22:26)
[2018-08-05] VITALS (7 sets, daily range): BP systolic 91–110; BP diastolic 50–54
[2018-08-05] MEDS: KETOROLAC 30 MG/ML VIAL (J1885) IV SCH ×3 (01:40→14:02)
[2018-08-05] MEDS: LR 1,000 ML IV SCH ×3 (03:24→19:24)
[2018-08-05 07:04] LABS: HEMATOCRIT 34.5 % (36.0-47.0); HEMOGLOBIN 11.5 g/dl (12.0-15.5); MEAN CORPUSCULAR HEMOGLOBIN 30.4 pg (27.0-33.0); MEAN CORPUSCULAR HGB CONC 33.3 g/dl (32.0-36.5); MEAN CORPUSCULAR VOLUME 91.3 fl (80.0-96.0); PLATELET COUNT, AUTOMATED 165 10^3/uL (150-450); RED BLOOD COUNT 3.78 10^6/uL (4.00-5.40); WHITE BLOOD COUNT 18.5 10^3/uL (4.0-10.0)
[2018-08-05] MEDS: PRENATAL VITAMINS CHEWABLE TABLET PO SCH (08:00)
[2018-08-05] MEDS ORDERED: OXYC1TAB23 PO (09:53)
[2018-08-05] MEDS ORDERED: IBUP-1022 PO (09:54)
[2018-08-05] MEDS: PERCOCET 5MG/325MG TAB PO PRN (18:48)
[2018-08-05] MEDS: IBUPROFEN 800 MG TAB PO SCH (21:57)
[2018-08-06] MEDS: PERCOCET 5MG/325MG TAB PO PRN ×3 (01:07→17:09)
[2018-08-06 02:00] VITALS: BP 99/53
[2018-08-06] MEDS: LR 1,000 ML IV SCH ×3 (03:24→19:24)
[2018-08-06] MEDS: IBUPROFEN 800 MG TAB PO SCH ×3 (05:32→21:02)
[2018-08-06 06:00] VITALS: BP 103/59
--- NOTE | 2018-08-06 06:14 | RO ---
DATE OF PROCEDURE: 08/04/2018 PREPROCEDURE DIAGNOSIS: 40+ weeks, arrest of descent. POSTPROCEDURE DIAGNOSIS: 40+ weeks, arrest of descent. PROCEDURE: Primary low transverse section. SURGEON: Dr. Enrique Leung CASKET ASSEMBLER: Tad Simon DO ANESTHESIA: Epidural. ESTIMATED BLOOD LOSS: 600 mL. URINE OUTPUT: 100 mL. FINDINGS: 6 pound 12 ounce or 3050 gram male , Apgars 8 and 8. Normal uterus, fallopian tubes and ovaries. DESCRIPTION OF PROCEDURE: The patient was taken to the operating room where epidural anesthesia was adequate. She was prepped and draped in sterile fashion in the supine position. A Anne catheter was already in place. A Pfannenstiel skin incision was made with the scalpel and carried through to the fascia. The fascia was nicked and extended and the fascia dissected off the rectus muscles. The peritoneal cavity was entered. A bladder flap was created. A curvilinear incision was made in the lower uterine segment until clear fluid was noted. This was extended manually. The was delivered from the vertex position without difficulty. The cord was doubly clamped and cut. The infant was handed off to the awaiting nurses. The placenta was expressed. The uterus was exteriorized and cleared of clots and debris. The uterine incision was closed with #0 Vicryl in a running locked fashion. A second imbricating layer of #0 Vicryl was placed. The uterus was placed back in the abdominal cavity. Good hemostasis was noted. The peritoneum was closed with #2-0 Vicryl in a running fashion. The fascia was closed with #0 Vicryl in a running fashion. The deep layer was irrigated and closed with #2-0 chromic. The skin was closed with #4-0 Monocryl subcuticular sutures. Sponge, needle and instrument counts were correct. Tda Simon DO, assisted in all aspects of the procedure from beginning to end. He assisted in creating the incision, all layers of the abdomen and the uterus, he assisted with delivery of the fetus and closure of all subsequent layers.
[2018-08-06] MEDS: PRENATAL VITAMINS CHEWABLE TABLET PO SCH (08:55)
[2018-08-06 10:10] VITALS: BP 116/62
[2018-08-06 14:32] VITALS: BP 121/65
[2018-08-06 18:15] VITALS: BP 103/62
[2018-08-07] MEDS: PERCOCET 5MG/325MG TAB PO PRN (00:10)
[2018-08-07] MEDS: IBUPROFEN 800 MG TAB PO SCH (05:44)
[2018-08-07 06:00] VITALS: BP 111/71
[2018-08-07] MEDS: PRENATAL VITAMINS CHEWABLE TABLET PO SCH (08:29)
== END 2018-08-07 13:00 | disposition home or self-care (01) | DRG 773 ==
LOC: M LDI 21:57 → M OBS 08-04 20:40
PROVIDERS: ADMIT Obstetrics & Gynecology; ATTEND Obstetrics & Gynecology
PROC: 3E0DXGC Introduction of Other Therapeutic Substance into Mouth and Pharynx, External Approach (ICD-10-PCS; 2018-08-02)
PROC: 10D00Z1 Extraction of Products of Conception, Low, Open Approach (ICD-10-PCS; principal; 2018-08-04 19:04)
DX: O48.0 Post-term pregnancy (principal); Z37.0 Single live birth; Z3A.41 41 weeks gestation of pregnancy; O69.82X0 Labor and delivery complicated by other cord entanglement, without compression, not applicable or unspecified; O32.4XX0 Maternal care for high head at term, not applicable or unspecified

== ENCOUNTER → 2018-12-10 | Outpatient (REF) | payer OTHER ==
[~2018-12-10] MED LIST changes: -GLYCOPYRROLATE INJ 0.2 MG/ML 2 ML VIAL As Ordered ONE; +IBUP-1022 PO; -LR 1,000 ML IV SCH; +OXYC1TAB23 PO; -PROPOFOL 200 MG/20 ML VIAL As Ordered ONE
== END ==
LOC: M LAB REF 18:51
PROVIDERS: ATTEND Physician Assistant
DX: R31.9 Hematuria, unspecified (principal)

== ENCOUNTER → 2018-12-19 | Outpatient (REF) | payer OTHER | LOC: M LAB REF 18:45 | PROVIDERS: ATTEND Specialist | DX: Z12.4 Encounter for screening for malignant neoplasm of cervix (principal) ==